=== PATIENT | female | born 1990 | race Caucasian/White ===

== ENCOUNTER 2018-06-27 13:16 | Outpatient (CLI) | payer OTHER | END 2018-06-27 23:59 | disposition home or self-care (01) | LOC: LAB.R 13:16 | PROVIDERS: ATTEND Registered Nurse | DX: R10.2 Pelvic and perineal pain (principal) | CPT/HCPCS: 87086; 87181; 87491; 87591 ==

== ENCOUNTER 2018-07-07 13:19 | Outpatient (CLI) | payer OTHER ==
--- NOTE | 2018-07-07 23:07 | Ultrasound Report ---
Reason: PELVIC PAIN Procedure Date: 07/07/2018 Accession Number: [id number] / [id number] Procedure: US - Pelvic w/Transvaginal CPT Code: FULL RESULT: EXAM: PELVIC ULTRASOUND WITH DOPPLERS CLINICAL HISTORY: PELVIC PAIN. COMPARISON: None. TECHNIQUE: Realtime transabdominal imaging performed to identify the uterus and adnexa and as an overview of other pelvic structures, followed by transvaginal imaging for better assessment of the endometrium and adnexa, with static image documentation. Color flow imaging and Doppler spectral analysis was performed to evaluate blood flow to the ovaries given pelvic pain and clinical concern for ovarian torsion. FINDINGS: Uterus: 7.5 x 4.4 x 2.9 cm, volume 49.8 cc. Anteverted position. Normal overall size and echotexture. Masses: None. Endometrium: 3.9 mm. Normal. Cervix: Unremarkable. Right Ovary: 3.3 x 2.1 x 2.4 cm, volume 8.6 cc. Normal echotexture. Arterial and venous blood flow are present. PSV 15.0 cm/sec. RI 0.69. Adnexa are unremarkable. Left Ovary: 3.0 x 2.8 x 2.0 cm, volume 8.7 cc. Normal echotexture. Arterial and venous blood flow are present. PSV 24.2 cm/sec. RI 0.93. Adnexa are unremarkable. Free Fluid: None. Other: None. IMPRESSION: 1. Normal pelvic ultrasound. 2. Arterial and venous blood flow are present to the ovaries bilaterally. Relative elevation of left PSV and RI of doubtful clinical significance. Routine Follow-up may be helpful to confirm stability of this finding. [facility]
== END 2018-07-07 13:20 | disposition home or self-care (01) ==
LOC: DI 13:19
PROVIDERS: ATTEND Registered Nurse
DX: R10.2 Pelvic and perineal pain (principal)
CPT/HCPCS: 76830; 76856

== ENCOUNTER 2018-08-19 14:37 | Outpatient (CLI) | payer OTHER | END 2018-08-19 23:59 | disposition home or self-care (01) | LOC: LAB.R 14:37 | PROVIDERS: ATTEND Registered Nurse | DX: N30.00 Acute cystitis without hematuria (principal) | CPT/HCPCS: 87086 ==

== ENCOUNTER 2018-09-01 09:00 | Outpatient (CLI) | payer OTHER | END 2018-09-01 23:59 | disposition home or self-care (01) | LOC: LAB.R 09:00 | PROVIDERS: ATTEND Registered Nurse | DX: N30.00 Acute cystitis without hematuria (principal) | CPT/HCPCS: 87086 ==

== ENCOUNTER 2018-09-29 08:00 | Outpatient (CLI) | payer OTHER | END 2018-09-29 23:59 | disposition home or self-care (01) | LOC: LAB.R 08:00 | PROVIDERS: ATTEND Registered Nurse | DX: B37.3 Candidiasis of vulva and vagina (principal) | CPT/HCPCS: 87491; 87591 ==

== ENCOUNTER 2019-01-29 08:23 | Outpatient (CLI) | payer OTHER ==
--- NOTE | 2019-01-30 16:54 | Ultrasound Report ---
Reason: PELVIC PAIN Procedure Date: 01/29/2019 Accession Number: [id number] / [id number] Procedure: US - Pelvic w/Transvaginal CPT Code: FULL RESULT: EXAM: PELVIC ULTRASOUND EXAM DATE: 01/29/2019 09:33 AM CLINICAL HISTORY: Pelvic pain. COMPARISON: PELVIC W/TRANSVAGINAL 07/07/2018 2:11 PM. TECHNIQUE: Real-time transabdominal pelvic scan performed to identify the uterus and adnexa and as an overview of other pelvic structures, followed by transvaginal scan to provide greater detail of the uterus and adnexa, with static image documentation. FINDINGS: Uterus: 7.0 x 2.6 x 4.5 cm, volume 42.9 cc. Anteverted position. Normal overall size and echotexture. Masses: None. Endometrium: 4 mm. Normal. Cervix: Unremarkable. Right Ovary: 3.1 x 1.8 x 2.3 cm, volume 7.1 cc. Normal echotexture and blood flow. Left Ovary: 2.5 x 1.6 x 2.2 cm, volume 4.97 cc. Normal echotexture and blood flow. Free Fluid: None. Other: None. IMPRESSION: Normal pelvic ultrasound. [facility]
== END 2019-01-29 08:24 | disposition home or self-care (01) ==
LOC: DI 08:23
PROVIDERS: ATTEND Nurse Practitioner Obstetrics & Gynecology
DX: R10.2 Pelvic and perineal pain (principal)
CPT/HCPCS: 76830; 76856

== ENCOUNTER 2019-02-05 15:39 | Outpatient (CLI) | payer OTHER ==
[2019-02-07 11:11] LABS: HSV 1 IGG TYPE SPECIFIC AB <0.90 index; HSV 2 IGG TYPE SPECIFIC AB <0.90 index
== END 2019-02-05 15:40 | disposition home or self-care (01) ==
LOC: LAB 15:39
PROVIDERS: ATTEND Nurse Practitioner Obstetrics & Gynecology
DX: N76.0 Acute vaginitis (principal)
CPT/HCPCS: 36415; 81599; 86695; 86696